=== PATIENT | female | born 2000 | race Caucasian/White ===

== ENCOUNTER 2021-12-04 14:08 | Outpatient (CLI) | payer OTHER | END 2021-12-04 15:41 | disposition home or self-care (01) | LOC: GENOP 14:08 | DX: O26.893 Other specified pregnancy related conditions, third trimester (principal); M54.9 Dorsalgia, unspecified; Z3A.30 30 weeks gestation of pregnancy | CPT/HCPCS: 81001; 82962; G0463 ==

== ENCOUNTER → 2022-01-06 | Outpatient (CLI) | payer OTHER | LOC: GENOP 13:33 | DX: O36.8130 Decreased fetal movements, third trimester, not applicable or unspecified (principal); Z3A.30 30 weeks gestation of pregnancy; O99.891 Other specified diseases and conditions complicating pregnancy; R10.9 Unspecified abdominal pain; M54.9 Dorsalgia, unspecified | CPT/HCPCS: 59025; 81001 ==

== ENCOUNTER 2022-02-05 13:56 | Outpatient (CLI) | payer OTHER | END 2022-02-05 15:15 | disposition home or self-care (01) | LOC: GENOP 13:56 | DX: O47.1 False labor at or after 37 completed weeks of gestation (principal); Z3A.38 38 weeks gestation of pregnancy | CPT/HCPCS: G0463 ==

== ENCOUNTER 2022-02-13 04:41 | Inpatient (IN) | payer OTHER ==
[~2022-02-13] VITALS: Ht 154.9 cm; Wt 59.9 kg
[2022-02-13 05:42] LABS: HEMOGLOBIN 7.9 gm/dl (12.3-15.3); RED BLOOD COUNT 3.91 M/UL (4.00-5.10); WHITE BLOOD COUNT 8.8 K/UL (4.5-11.0)
[2022-02-14 04:55] LABS: HEMOGLOBIN 6.7 gm/dl (12.3-15.3)
[2022-02-14 17:00] LABS: HEMOGLOBIN 9.1 gm/dl (12.3-15.3)
[2022-02-15] MEDS ORDERED: OXYCODONE HCL5 M1 PO (11:30)
[2022-02-15] MEDS ORDERED: DOCUSATE SODIU250 MG PO (11:30)
[2022-02-15] MEDS ORDERED: IBUPROFEN600 MG PO (11:30)
== END 2022-02-15 13:57 | disposition home or self-care (01) | DRG 787 ==
LOC: OB 04:41
PROVIDERS: Obstetrics & Gynecology; ADMIT Obstetrics & Gynecology
PROC: 30233N1 Transfusion of Nonautologous Red Blood Cells into Peripheral Vein, Percutaneous Approach (ICD-10-PCS; 2022-02-13)
PROC: 4A1HXCZ Monitoring of Products of Conception, Cardiac Rate, External Approach (ICD-10-PCS; 2022-02-13)
PROC: 10D00Z1 Extraction of Products of Conception, Low, Open Approach (ICD-10-PCS; principal; 2022-02-13 07:30)
DX: O34.211 Maternal care for low transverse scar from previous cesarean delivery (principal); D62 Acute posthemorrhagic anemia; O99.354 Diseases of the nervous system complicating childbirth; Z3A.39 39 weeks gestation of pregnancy; Z37.0 Single live birth; O99.02 Anemia complicating childbirth; O99.344 Other mental disorders complicating childbirth; G43.909 Migraine, unspecified, not intractable, without status migrainosus; G40.909 Epilepsy, unspecified, not intractable, without status epilepticus; F41.9 Anxiety disorder, unspecified; O62.2 Other uterine inertia; F32.A Depression, unspecified; Z88.8 Allergy status to other drugs, medicaments and biological substances; Z83.3 Family history of diabetes mellitus; Z80.3 Family history of malignant neoplasm of breast; Z82.5 Family history of asthma and other chronic lower respiratory diseases; Z82.0 Family history of epilepsy and other diseases of the nervous system; Z82.49 Family history of ischemic heart disease and other diseases of the circulatory system
CPT/HCPCS: 36415; 81001; 82800; 85014; 85018; 85025; 86850; 86900; 86901; 86920; C9113; J0690; J1170; J1885; J2210; J2274; J2370; J2405; J2590; J3010; J7040; P9016